=== PATIENT | male | born 1955 | race Caucasian/White ===

== ENCOUNTER 2021-05-17 12:10 | Emergency (ER) | payer BC, SELFPAY ==
[2021-05-17 12:16] VITALS: BP 199/88; PULSE 78; RESP 16; TEMP 36.4; O2SAT 98
--- NOTE | 2021-05-17 12:30 | DI.CT_ITS ---
Exam(s) CT RENAL COLIC WO EXAM: CT RENAL COLIC WO CLINICAL HISTORY: right flank pain. TECHNIQUE: Imaging Protocol: Axial computed tomography images with coronal and sagittal reformatted images were created and reviewed. COMPARISON: No exams were available for comparison FINDINGS: ABDOMEN: Lung Bases: Normal where visualized. Liver: Fatty infiltration of the liver. No measurable mass. Gallbladder and biliary tract: No radiodense calculus or biliary ductal dilation. Pancreas: Normal density, no abnormal calcifications or inflammatory process. Spleen: Normal. Kidneys: Normal size, contour and axis.5 mm stone in the proximal right ureter causing sxpv-zf-xzhtbz te hydronephrosis. No masses seen. Adrenal glands: No mass is seen. Lymph nodes: Within normal limits. Abdominal Aorta: Abdominal portion non-dilated. Mild atherosclerosis. PELVIS: Bladder:Symmetric distention, no gross wall thickening. Bowel: No obstruction or bowel wall thickening. Appendix is unremarkable. Diverticulosis of the sigm oid colon, but no evidence of acute diverticulitis. Peritoneal cavity: No ascites, collection or mesenteric inflammatory response. No free air. Reproductive organs: Within normal limits. Bones: L5 spondylolysis but no evidence of spondylolisthesis. Soft Tissues: Findings suggestive of a prior right inguinal hernia repair. IMPRESSION: 1. 5 mm proximal right ureteral stone causing ojsi-ba-qwwllnjg hydronephrosis. 2. Results of this exam have been verbally communicated with provider. RADIATION DOSE DELIVERED: 949.63mGy.cm Total DLP DATA REPOSITORY: All CT scans at this facility are submitted to the National Radiology Data Registry (NRDR) Dose Index Registry (DIR) with the [employer] ([employer]). RADIATION OPTIMIZATION: All CT scans at this facility use at least one of these dose optimization te chniques: automated exposure control; mA and/or kV adjustment per patient size (includes targeted exa ms where dose is matched to clinical indication); or iterative reconstruction.
--- NOTE | 2021-05-17 12:45 | W.ED.GENAD ---
Discharge Plan Disposition Patient Disposition: HOME Condition: Stable Discharge Details Clinical Impression: Ureterolithiasis Primary Care Provider: Unknown,Unknown ED Provider: Gail Good Home Meds and New Rx's Prescriptions: New tamsulosin 0.4 mg capsule 0.4 mg PO DAILY 7 Days Qty: 7 RF: 0 ondansetron 4 mg tablet,disintegrating 4 mg PO TID PRN (Reason: nausea and vomiting) Qty: 6 RF: 0 oxycodone-acetaminophen [Percocet] 5-325 mg tablet 1 tab PO Q8H PRNQty: 8 RF: 0 No Action losartan 25 mg Tablet 25 mg PO DAILY RF: 0 doxazosin 8 mg Tablet 10 mg PO DAILY RF: 0 Discharge Instructions Instructions: Oxycodone/Acetaminophen (By mouth), Kidney Stones (ED) Additional Instructions: Please return immediately to the emergency department if you develop any new or worsening symptoms, if your condition does not improve as expected, or if you become otherwise concerned. It is extremely important that you call soon as possible to make an appointment to be seen in follow-up for this visit by your primary care doctor and urologist as we discussed. Please make sure to drink plenty of fluids. Please do not take Percocet within 6 hours of drinking alcohol or taking any other sedating medications. Please do not drive, operate machinery, or make important decisions while taking Percocet. Referrals: Axel Webster MD [ [facility] STAFF PHYSICIAN] - Discharge Data Discharge Date/Time-TO BE ENTERED AT DEPARTURE: 05/17/21 15:27 Medical Decision Making Monty Deleon is a 65 y/o man with history of hypertension who presented to emergency department with waxing and waning right-sided flank pain, nausea, diarrhea since last night. On exam patient is well and nontoxic-appearing. He appears comfortable between episodes of pain. He is walking about the emergency department to the bathroom without issue. There is no CVA tenderness, no abdominal tenderness to palpation. Abdomen without mass. Femoral and DP pulses are intact and symmetric bilaterally. Concern for likely ureterolithiasis, pyelonephritis, other. Doubt acute aortic pathology, appendicitis, other acute emergent intra-abdominal pathology at this time. Exam/history is not consistent with sepsis, acute coronary syndrome, pulmonary embolism. Plan for IV placement, screening labs, IV fluid hydration, IV Dilaudid, CT renal. Patient reports that he has a paradoxical reaction to codeine in which he becomes agitated as opposed to sedated, okay for trial Dilaudid. Will monitor and reassess. Labs reviewed, normal WBC and creatinine, UA shows RBCs. CT shows 5 mm stone in the right proximal ureter. Discussed results with patient. Patient reports that he has possible NSAID allergy resulting in facial/lip/tongue swelling. Will hold Toradol and NSAIDs at this time. Patient reports pain well controlled at this point. Spoke with Joi Leung of urology, who stated that he could go home with Flomax, pain meds to attempt to pass stone on his own, or alternatively could be admitted today for stent placement tomorrow. I offered patient admission. Patient states that he is from [facility], and would prefer to go home and see urology in follow-up there as needed. I had a lengthy discussion with patient about safe Percocet use including not taking Percocet within 6 hours of alcohol or other sedating medication in addition to not driving or making him poor decisions while taking Percocet. Plan for Zofran, Flomax prescriptions as well. I had a lengthy discussion with Patient regarding return to emergency department precautions, home care, and importance of outpatient follow-up. Pt verbalizes understanding of the plan and is amenable. Patient discharged to home with clear plan for outpatient follow-up. All questions were answered. Printout of patient's CT results were included with his discharge packet. Disposition decision was made weighing the risks and benefits of hospitalization versus outpatient treatment, the risk for further decompensation, and the patient's wishes. Medical Records Medical records reviewed: Yes I reviewed the patient's medical records. Imaging Data Radiologic Study: Attestation: I personally reviewed and interpreted this imaging study as follows: Radiologist's impression: Exam(s) CT RENAL COLIC WO EXAM: CT RENAL COLIC WO CLINICAL HISTORY: right flank pain. TECHNIQUE: Imaging Protocol: Axial computed tomography images with coronal and sagittal reformatted images were created and reviewed. COMPARISON: No exams were available for comparison FINDINGS: ABDOMEN: Lung Bases: Normal where visualized. Liver: Fatty infiltration of the liver. No measurable mass. Gallbladder and biliary tract: No radiodense calculus or biliary ductal dilation. Pancreas: Normal density, no abnormal calcifications or inflammatory process. Spleen: Normal. Kidneys: Normal size, contour and axis.5 mm stone in the proximal right ureter causing itgv-qu-qmqitmue hydronephrosis. No masses seen. Adrenal glands: No mass is seen. Lymph nodes: Within normal limits. Abdominal Aorta: Abdominal portion non-dilated. Mild atherosclerosis. PELVIS: Bladder:Symmetric distention, no gross wall thickening. Bowel: No obstruction or bowel wall thickening. Appendix is unremarkable. Diverticulosis of the sigmoid colon, but no evidence of acute diverticulitis. Peritoneal cavity: No ascites, collection or mesenteric inflammatory response. No free air. Reproductive organs: Within normal limits. Bones: L5 spondylolysis but no evidence of spondylolisthesis. Soft Tissues: Findings suggestive of a prior right inguinal hernia repair. IMPRESSION: 1. 5 mm proximal right ureteral stone causing tcpi-lv-ekzgzlal hydronephrosis. 2. Results of this exam have been verbally communicated with provider. Lab Data Lab results reviewed: Yes I reviewed the patient's lab results. Labs: Laboratory Tests Range/Units 05/17/21 05/17/21 05/17/21 12:27 12:27 12:47 WBC (4.4-10.8) 10^3/uL 9.87 RBC (4.36-5.78) 10^6/uL 4.38 Hgb (13.5-17.5) g/dL 13.6 Hct (40.0-50.0) % 39.4 L MCV (80-95) fL 90.0 MCH (27.0-33.0) pg 31.1 MCHC (32.0-36.0) % 34.5 RDW (11.8-14.1) % 12.7 Plt Count (130-400) 10^3/uL 250 MPV (8.0-11.0) fL 10.0 Immature Gran % 0.3 Neutrophils % 80.2 Lymphocytes % 13.3 Monocytes % 5.5 Eosinophils % 0.2 Basophils % 0.5 Nucleated RBC % % 0 Absolute Neutrophils (1.2-6.7) 10^3/uL 7.92 H Absolute Lymphocytes (1.2-3.4) 10^3/uL 1.31 Absolute Monocytes (0.1-0.8) 10^3/uL 0.54 Absolute Eosinophils (0.0-0.7) 10^3/uL 0.02 Absolute Basophils (0.0-0.2) 10^3/uL 0.05 Sodium (136-145) mmol/L 142 Potassium (3.5-5.1) mmol/L 3.6 Chloride (98-107) mmol/L 105 Carbon Dioxide (21.0-32.0) mmol/L 25.2 Anion Gap (3-11) mmol/L 11.8 H BUN (7-18) mg/dL 13 Creatinine (0.70-1.30) mg/dL 1.3 Estimated GFR/1.73 m2 (mL/min/1.73m2) 55.75 Glucose (74-106) mg/dL 137 H Calcium (8.5-10.1) mg/dL 9.1 Total Bilirubin (0.2-1.0) mg/dL 0.7 AST (15-37) U/L 23 ALT (16-63) U/L 44 Alkaline Phosphatase (46-116) U/L 103 Total Protein (6.4-8.2) g/dL 8.4 H Albumin (3.4-5.0) g/dL 4.8 Urine Color (Yellow) Yellow Urine Clarity (Clear) Clear Urine pH (5-8) 6.0 Ur Specific [place] (1.005-1.025) 1.020 Urine Protein (Negative) mg/dL Negative Urine Ketones (Negative) mg/dL Negative Urine Blood (Negative) Moderate H Urine Nitrite (Negative) Negative Urine Bilirubin (Negative) Negative Urine Urobilinogen (Up TO 0.2) EU/dL 0.2 Ur Leukocyte Esterase (Negative) Negative Urine RBC (0-2) HPF 20-50 H Urine WBC (0-5) HPF 0-2 Ur Epithelial Cells (Negative) HPF Few Urine Crystals (Negative) HPF Negative Urine Bacteria (Negative) HPF Rare Urine Casts (Negative) LPF Negative Urine Mucus (Negative) Negative Ur Culture Indicated? No Urine Glucose (Negative) mg/dL Negative HPI General Mode of arrival: ambulatory. Date/Time Provider Initiated Documentation: 05/17/21 12:25. Limitations to Documentation: no limitations. Information obtained by: patient, RN notes reviewed and old records reviewed. HPI Narrative: Monty Deleon is a 65-year-old man with a history of hypertension who presents to the emergency department with right-sided flank pain. Patient reports that over the past 2 weeks he has had intermittent pain in his right flank that has been brief and mild to moderate. Patient reports that last night around 11 PM pain in his right flank became more severe. Pain radiates into right lower abdomen. Patient reports that pain is intermittent. He feels the need to get up and pace or move around when pain worsens. He denies fever, cough, shortness of breath, numbness, weakness, rash, dysuria. Patient reports that since worsening of pain last night at 11 PM he has had 1 episode of vomiting and significant nausea. Also with some diarrhea since that time. He denies history of kidney stones. Has been eating and drinking as usual. Related Data Home Medications Medication Instructions Recorded Confirmed doxazosin 10 mg PO DAILY 05/17/21 05/17/21 losartan 25 mg PO DAILY 05/17/21 05/17/21 ondansetron 4 mg PO TID PRN #6 tab 05/17/21 oxycodone-acetaminophen [Percocet] 1 tab PO Q8H PRN #8 tab 05/17/21 tamsulosin 0.4 mg PO DAILY 7 Days #7 cap 05/17/21 Previous Rx's Medication Instructions Recorded ondansetron 4 mg PO TID PRN #6 tab 05/17/21 oxycodone-acetaminophen [Percocet] 1 tab PO Q8H PRN #8 tab 05/17/21 tamsulosin 0.4 mg PO DAILY 7 Days #7 cap 05/17/21 Allergies Allergy/AdvReac Type Severity Reaction Status Date / Time NSAIDS (Non-Steroidal Allergy Severe Swelling/Ed Unverified 05/17/21 14:15 Anti-Inflamma willard codeine AdvReac Unverified 05/17/21 12:20 General Stated Complaint: GenMedical MARGARITA: 3 Review of Systems Narrative: Constitutional: denies fevers Eyes: denies eye pain ENT: denies ear pain, dental pain, sore throat Cardiovascular: denies chest pain, edema Respiratory: denies SOB, cough GI: denies abdominal pain, reports vomiting, diarrhea : Reports right-sided flank pain, denies dysuria MSK: denies back pain, neck pain, arthralgias, myalgias Skin: denies rash Neuro: denies headaches, numbness, weakness PFSH Social History Smoking/Tobacco Use Status: Former Tobacco Use Smoking risk assessment performed?: Yes Alcohol Intake: current Alcohol Intake frequency: a few times a month Drug use: Occasionally Substance use type: marijuana Do you feel safe at home: Yes Exam Narrative Exam Narrative: Constitutional: well and [id number], pleasant, conversing normally HENT: head atraumatic/normocephalic/normal inspection, mucous membranes moist Eyes: conjunctiva normal, sclera normal, pupils 3mm b/l Neck: no stridor, normal ROM, trachea midline Resp: normal work of breathing, LCTAB Cardio: normal rate, normal rhythm, no murmur appreciated. Femoral and DP pulses intact and symmetric GI: abdomen soft, non-tender, non-distended. No right-sided CVA tenderness. Back: normal inspection, no rash Skin: warm, dry, normal color, no rash Neuro: alert, not altered, grossly non-focal, normal tone. Walking about the emergency department without issue. Ext: no edema Psych: normal mood, normal affect, normal behavior Course Vital Signs Vital signs: Vital Signs Temperature 36.4 C L 05/17/21 12:16 Pulse 78 05/17/21 12:16 Respiratory Rate 16 05/17/21 12:16 Blood Pressure 199/88 H 05/17/21 12:16 Pulse Oximetry 98 05/17/21 12:16 Temperature 36.4 C L 05/17/21 12:16 Temperature Source Skin 05/17/21 12:16 Pulse 78 05/17/21 12:16 Respiratory Rate 16 05/17/21 12:16 Respiratory Effort Non-Labored 05/17/21 12:31 Blood Pressure 199/88 H 05/17/21 12:16 Blood Pressure Position Sitting 05/17/21 12:16 Pulse Oximetry 98 05/17/21 12:16 Oxygen Delivery Method Room Air 05/17/21 12:16 Oxygen Flow Rate 0 05/17/21 12:16 Pain Level 4 05/17/21 12:16
[2021-05-17 12:48] LABS: Abs Immature Grans 0.03 10^3/uL (0.0-0.06); Absolute Basophil Count 0.05 10^3/uL (0.0-0.2); Absolute Eosinophil Count 0.02 10^3/uL (0.0-0.7); Absolute Lymphocyte Count 1.31 10^3/uL (1.2-3.4); Absolute Monocyte Count 0.54 10^3/uL (0.1-0.8); Absolute Neutrophil Count 7.92 10^3/uL (1.2-6.7); Basophils % 0.5; Eosinophils % 0.2; HCT 39.4 % (40.0-50.0); HGB 13.6 g/dL (13.5-17.5); Immature Grans % 0.3; Lymphocytes % 13.3; MCH 31.1 pg (27.0-33.0); MCHC 34.5 % (32.0-36.0); Monocytes % 5.5; Neutrophils % 80.2; Nucleated RBC 0 %; Platelet Count 250 10^3/uL (130-400); RBC 4.38 10^6/uL (4.36-5.78); RDW 12.7 % (11.8-14.1); RDW-SD 41.7 fL; WBC 9.87 10^3/uL (4.4-10.8)
[2021-05-17] MEDS: HYDROmorphone 2 MG/ML VIAL 0.5 MG IVP (12:52)
[2021-05-17] MEDS: Ondansetron 4 MG/2 ML VIAL IVP (12:52)
[2021-05-17] MEDS: Normal Saline 500 ML IV (12:52)
[2021-05-17 13:01] LABS: ALT 44 U/L (16-63); AST 23 U/L (15-37); Albumin 4.8 g/dL (3.4-5.0); Alkaline Phosphatase 103 U/L (46-116); Anion Gap 11.8 mmol/L (3-11); BUN 13 mg/dL (7-18); Bilirubin, Total 0.7 mg/dL (0.2-1.0); CO2 25.2 mmol/L (21.0-32.0); CREATININE 1.3 mg/dL (0.70-1.30); Calcium 9.1 mg/dL (8.5-10.1); Chloride 105 mmol/L (98-107); Estimated GFR 55.75 (mL/min/1.73m2); Glucose 137 mg/dL (74-106); Potassium 3.6 mmol/L (3.5-5.1); Sodium 142 mmol/L (136-145); Total Protein 8.4 g/dL (6.4-8.2)
[2021-05-17 13:10] LABS: Bilirubin Negative (Negative); Blood Moderate (Negative); Clarity Clear (Clear); Glucose Negative (Negative); Ketones Negative (Negative); Leukocyte Esterase Negative (Negative); Nitrite Negative (Negative); Urobilinogen 0.2 EU/dL (Up TO 0.2)
[2021-05-17 13:21] LABS: Bacteria Rare HPF (Negative); C & S Indicated? No; Casts Negative LPF (Negative); Crystals Negative HPF (Negative); Epithelial Cells Few HPF (Negative); Mucus Negative (Negative); RBC 20-50 HPF (0-2); WBC 0-2 HPF (0-5)
[2021-05-17 14:12] VITALS: BP 181/87; PULSE 67; RESP 17; TEMP 36.2; O2SAT 98
== END 2021-05-17 15:27 | disposition home or self-care (01) ==
PROVIDERS: Emergency Provider Student in an Organized Health Care Education/Training Program
DX: N20.1 Calculus of ureter (principal)
CPT/HCPCS: 80053; 96361; 96374; 96375; 99284; 74176; 81003; 81015; 85025; J2405

== ENCOUNTER 2021-05-17 21:55 | Emergency (ER) | payer BC, SELFPAY ==
[2021-05-17 22:16] VITALS: BP 179/83; PULSE 76; TEMP 37.3; O2SAT 98
--- NOTE | 2021-05-17 22:51 | ED.GENADUL_ITS ---
Discharge Plan Disposition Patient Disposition: HOME Condition: Stable Discharge Details Clinical Impression: Ureterolithiasis Primary Care Provider: Unknown,Unknown ED Provider: Joycelyn Santamaria Home Meds and New Rx's Prescriptions: Continued losartan 25 mg Tablet 25 mg PO DAILY RF: 0 doxazosin 8 mg Tablet 10 mg PO DAILY RF: 0 tamsulosin 0.4 mg capsule 0.4 mg PO DAILY 7 Days Qty: 7 RF: 0 ondansetron 4 mg tablet,disintegrating 4 mg PO TID PRN (Reason: nausea and vomiting) Qty: 6 RF: 0 oxycodone-acetaminophen [Percocet] 5-325 mg tablet 1 tab PO Q8H PRNQty: 8 RF: 0 Discharge Instructions Instructions: Kidney Stones (ED) Additional Instructions: Please continue to encourage fluid intake. You may use Percocet as prescribed previously. You may augment this with Tylenol but please do not exceed 3000 mg of Tylenol daily. Please continue with the Flomax as previously prescribed. If you develop fever/chills, increased pain or other new/worsening symptoms please seek care urgently once again. Otherwise, please call your primary care tomorrow to schedule follow-up appointment at home as well as referral to urology Discharge Data Discharge Date/Time-TO BE ENTERED AT DEPARTURE: 05/17/21 23:58 Medical Decision Making Patient pleasant 55-year-old gentleman presenting with chief complaint of right sided flank pain. He was seen here earlier today and diagnosed with a 5 mm kidney stone causing mild to moderate hydronephrosis. At the proximal right ureter. Patient states that since being discharged, the pain has begun moving down and wrapping around the outer side of his abdomen. He denies any fevers or chills. States that he continues to have some mild nausea which he associates with pain. No vomiting. Has had some pain which has been hydrating. Patient was sent home with Percocet. However, he states that he tends to titrate his medications up into the single full dose only took half a tab. Took half a tab this afternoon and a subsequent second half a tab an hour and a half later. Has not had any since then. States that the pain has persisted. Is still urinating normally. No change in bowel habits. Patient's plan has been to return to [facility] tomorrow as he was hoping to be evaluated by urologist at his home center. On exam, patient appears nontoxic. Vital signs are stable. Patient indicates the right CVA area of discomfort but no pain is elicited with percussion. No abdominal pain elicited with palpation. Lungs are clear, normal cardiac exam. Patient discussed treatment options. Patient is hoping to return home tomorrow as was his previous plan. We will give a full dose of patient's Percocet and reassess. Reassessed the patient, he reports his pain is much improved. We discussed continued management. He has more Percocet at home. He would prefer to follow- up at home in [place]. Again, return precautions were discussed.. Reiterated recommendations from Dr. Good this morning. All his questions and concerns were addressed and he is agreement this plan. [facility] General Mode of arrival: ambulatory . Date/Time Provider Initiated Documentation: 05/17/21 22:51 . Limitations to Documentation: no limitations . Information obtained by: patient and RN notes reviewed . History of Present Illness 65 year old M presents to the emergency department with the chief complaint of right flank pain, described as moderate, with intensity rated at 5. Quality is described as aching, and is localized to the back. Patient reports no radiation. Patient started experiencing this hour(s) and it has been constant. No relieving factors improve symptom(s), No exacerbating factors reported . Patient notes loss of appetite and nausea/vomiting (nausea, no vomiting); denies chest pain, fever/chills, rash, shortness of breath and weakness. Patient did receive the following treatments prior to arrival, none Related Data Home Medications Medication Instructions Recorded Confirmed doxazosin 10 mg PO DAILY 05/17/21 05/17/21 losartan 25 mg PO DAILY 05/17/21 05/17/21 ondansetron 4 mg PO TID PRN #6 tab 05/17/21 oxycodone-acetaminophen [Percocet] 1 tab PO Q8H PRN #8 tab 05/17/21 tamsulosin 0.4 mg PO DAILY 7 Days #7 cap 05/17/21 Previous Rx's Medication Instructions Recorded ondansetron 4 mg PO TID PRN #6 tab 05/17/21 oxycodone-acetaminophen [Percocet] 1 tab PO Q8H PRN #8 tab 05/17/21 tamsulosin 0.4 mg PO DAILY 7 Days #7 cap 05/17/21 Allergies Allergy/AdvReac Type Severity Reaction Status Date / Time NSAIDS (Non-Steroidal Allergy Severe Swelling/Ed Unverified 05/17/21 14:15 Anti-Inflamma willard codeine AdvReac Unverified 05/17/21 12:20 General Stated Complaint: Nk/Back Pain MARGARITA: 3 Review of Systems Constitutional Constitutional: Reports as per HPI, Denies chills, Denies fever(s) and Denies poor appetite Cardiovascular Cardiovascular: Denies chest pain Respiratory Respiratory: Denies cough Gastrointestinal Gastrointestinal: Denies abdominal pain, Denies change in bowel habits, Reports nausea and Denies vomiting Genitourinary Genitourinary: Reports as per HPI Musculoskeletal Musculoskeletal: Reports as per HPI and Reports back pain Integumentary/Breasts Skin/Breast: Reports as per HPI and Denies rash [facility] Social History Smoking/Tobacco Use Status: Former Tobacco Use Smoking risk assessment performed?: Yes Alcohol Intake: current Alcohol Intake frequency: a few times a month Drug use: Occasionally Substance use type: marijuana Do you feel safe at home: Yes Exam Const General: cooperative, healthy appearing, comfortable, no acute distress, well developed and well groomed Nutritional Appearance: average body habitus and well nourished Orientation: alert and awake Resp Effort & Inspection: normal respiratory effort and no respiratory distress Auscultation: clear to auscultation bilaterally, no rales, no rhonchi and no wheezes Cardio Rate: regular rate Rhythm: regular rhythm Heart Sounds: S1 normal and S2 normal GI Inspection: normal to inspection Palpation: soft, no hepatosplenomegaly, not firm, no guarding, not rigid and nontender Back/Spine/Pelvis Back: no CVA tenderness Skin General skin exam: no rashes or lesions noted Trauma: no lacerations or abrasions Neuro General: patient alert and patient awake Cognition: normal cognition Speech: speech normal Gait: normal gait Psych Appearance: grossly normal and well kempt Mental Status: mental status grossly normal Speech and Movement: speech and movement normal Course Vital Signs Vital signs: Vital Signs Temperature 37.3 C 05/17/21 22:16 Pulse 76 05/17/21 22:16 Blood Pressure 179/83 H 05/17/21 22:16 Pulse Oximetry 98 05/17/21 22:16 Temperature 37.3 C 05/17/21 22:16 Temperature Source Temporal Artery Scan 05/17/21 22:16 Pulse 76 05/17/21 22:16 Respiratory Effort 05/17/21 22:18 Blood Pressure 179/83 H 05/17/21 22:16 Blood Pressure Position Sitting 05/17/21 22:16 Pulse Oximetry 98 05/17/21 22:16 Oxygen Delivery Method Room Air 05/17/21 22:16 Oxygen Flow Rate 0 05/17/21 22:16 Pain Level 5 05/17/21 22:20
[2021-05-17] MEDS: oxyCODONE 5 mg/Acetaminophen 325 mg TAB 1 TAB PO (23:10)
[2021-05-17 23:35] VITALS: BP 144/74; PULSE 76; RESP 16; O2SAT 98
== END 2021-05-17 23:58 | disposition home or self-care (01) ==
PROVIDERS: Emergency Provider Physician Assistant
DX: N20.1 Calculus of ureter (principal)
CPT/HCPCS: 99283